=== PATIENT | male | born 1945 | race Caucasian/White ===

== ENCOUNTER 2020-03-04 10:11 | Outpatient (REF) | payer MEDICARE, SELFPAY | END 2020-03-04 10:12 | disposition home or self-care (01) | LOC: HO.BBR 10:11 | PROVIDERS: PCP Internal Medicine; Visit Provider Internal Medicine Gastroenterology | DX: Z13.89 Encounter for screening for other disorder (principal) ==

== ENCOUNTER 2020-03-04 10:55 | Outpatient (REF) | payer SELFPAY ==
[2020-03-04 11:55] LABS: Cholesterol 161 mg/dL
== END 2020-03-04 10:56 | disposition home or self-care (01) ==
LOC: HO.LNC 10:55
PROVIDERS: Visit Provider Pathology Anatomic Pathology & Clinical Pathology
DX: Z13.89 Encounter for screening for other disorder (principal)
CPT/HCPCS: 82465

== ENCOUNTER 2020-07-09 09:49 | Outpatient (REF) | payer MEDICARE, SELFPAY | END 2020-07-09 09:50 | disposition home or self-care (01) | LOC: HO.BBR 09:49 | PROVIDERS: Visit Provider Internal Medicine Gastroenterology | DX: Z13.89 Encounter for screening for other disorder (principal) ==

== ENCOUNTER 2020-11-06 08:55 | Outpatient (REF) | payer MEDICARE, SELFPAY | END 2020-11-06 08:56 | disposition home or self-care (01) | LOC: HO.BBR 08:55 | PROVIDERS: Visit Provider Internal Medicine Gastroenterology | DX: Z13.89 Encounter for screening for other disorder (principal) ==

== ENCOUNTER 2021-02-27 08:55 | Outpatient (REF) | payer MEDICARE, SELFPAY | END 2021-02-27 08:56 | disposition home or self-care (01) | LOC: HO.BBR 08:55 | PROVIDERS: Visit Provider Internal Medicine Gastroenterology | DX: Z13.89 Encounter for screening for other disorder (principal) ==

== ENCOUNTER 2021-07-08 08:16 | Outpatient (REF) | payer MEDICARE, SELFPAY | END 2021-07-08 08:17 | disposition home or self-care (01) | LOC: HO.BBR 08:16 | PROVIDERS: Visit Provider Internal Medicine Gastroenterology | DX: Z13.89 Encounter for screening for other disorder (principal) ==

== ENCOUNTER 2021-11-13 08:52 | Outpatient (REF) | payer MEDICARE, SELFPAY | END 2021-11-13 08:53 | disposition home or self-care (01) | LOC: HO.BBR 08:52 | PROVIDERS: Visit Provider Internal Medicine Gastroenterology | DX: Z13.89 Encounter for screening for other disorder (principal) ==

== ENCOUNTER 2022-03-05 14:35 | Outpatient (REF) | payer MEDICARE, SELFPAY | END 2022-03-05 14:36 | disposition home or self-care (01) | LOC: HO.BBR 14:35 | PROVIDERS: Visit Provider Internal Medicine Gastroenterology | DX: Z13.89 Encounter for screening for other disorder (principal) ==

== ENCOUNTER 2022-07-07 08:35 | Outpatient (REF) | payer MEDICARE, SELFPAY | END 2022-07-07 08:36 | disposition home or self-care (01) | LOC: HO.BBR 08:35 | PROVIDERS: Visit Provider Internal Medicine Gastroenterology | DX: Z13.89 Encounter for screening for other disorder (principal) ==

== ENCOUNTER 2022-11-13 09:01 | Outpatient (REF) | payer MEDICARE, SELFPAY | END 2022-11-13 09:02 | disposition home or self-care (01) | LOC: HO.BBR 09:01 | PROVIDERS: PCP Pediatrics; Visit Provider Internal Medicine Gastroenterology | DX: Z13.89 Encounter for screening for other disorder (principal) ==

== ENCOUNTER 2023-03-11 10:11 | Outpatient (REF) | payer MEDICARE, SELFPAY | END 2023-03-11 10:12 | disposition home or self-care (01) | LOC: HO.BBR 10:11 | PROVIDERS: PCP Pediatrics; Visit Provider Internal Medicine Gastroenterology | DX: Z13.89 Encounter for screening for other disorder (principal) ==

== ENCOUNTER 2023-07-12 09:46 | Outpatient (REF) | payer MEDICARE, SELFPAY | END 2023-07-12 09:47 | disposition home or self-care (01) | LOC: HO.BBR 09:46 | PROVIDERS: PCP Pediatrics; Visit Provider Internal Medicine Gastroenterology | DX: Z13.89 Encounter for screening for other disorder (principal) ==

== ENCOUNTER 2023-11-16 10:00 | Outpatient (REF) | payer MEDICARE, SELFPAY | END 2023-11-16 10:01 | disposition home or self-care (01) | LOC: HO.BBR 10:00 | PROVIDERS: PCP Pediatrics; Visit Provider Internal Medicine Gastroenterology | DX: Z13.89 Encounter for screening for other disorder (principal) ==

== ENCOUNTER 2024-03-06 08:14 | Outpatient (REF) | payer MEDICARE, SELFPAY | END 2024-03-06 08:15 | disposition home or self-care (01) | LOC: HO.BBR 08:14 | PROVIDERS: PCP Pediatrics; Visit Provider Internal Medicine Gastroenterology | DX: Z13.89 Encounter for screening for other disorder (principal) ==

== ENCOUNTER 2024-07-25 09:48 | Outpatient (REF) | payer MEDICARE, SELFPAY ==
--- OUTSIDE RECORDS SUMMARY | 2024-07-25 10:49 | XMS_ITS | Clinical Summary ---
Author Organization [facility] ity Address [address] [place] [address] Care Team Providers Care Party Coordinator Name Role Phone Phong Workman MD Primary Care Provider Medications apixaban (ELIQUIS) 5 mg tablet Take 1 tablet (5 mg total) by mouth 2 (two) times a day. 180 each 3 01/17/2024 Active lisinopriL (PRINIVIL,ZESTR IL) 20 mg tablet Take 1 tablet (20 mg total) by mouth 1 (one) time each day. Active chlorthalidone (HYGROTON) 25 mg tablet Take 1 tablet (25 mg total) by mouth 1 (one) time each day. 02/23/2024 Active metoprolol succinate (TOPROL-XL) 25 mg 24 hr tablet Take 1 tablet (25 mg total) by mouth 1 (one) time each day. Active dilTIAZem CD (CARDIZEM CD) 240 mg 24 hr capsule Take 1 capsule (240 mg total) by mouth 1 (one) time each day. 90 capsule 1 05/30/2024 Active Surgical History Surgery Date Site/Laterality Comments COLONOSCOPY PROCEDURE: HISTORICAL COLONOSCOPY HERNIA REPAIR PROCEDURE: HISTORICAL HERNIA REPAIR/ING HIP ARTHROPLASTY Right PROCEDURE: HISTORICAL HIP REPLACEMENT HAND SURGERY Left PROCEDURE: HISTORICAL HAND SURGERY; COMMENT: fingers repaired after nearly severed OTHER SURGICAL HISTORY PROCEDURE: MD BIOPSY LIVER NEEDLE PERCUTANEOUS Medical History Medical History Date Comments A-fib (CMS/HCC V24, CMS/HCC V28) DX:A-fib (HCC) Atrial fibrillation (CMS/HCC V24, CMS/HCC V28) DX:Atrial fibrillation (HCC) History of cardioversion DX:Hist ory of cardioversion; COMMENT: for atrial fibrillation; ineffective Hand injury DX:Hand injury; COMMENT: left fingers cut as as teen while working at [employer]; repaired Hemochromatosis DX:Hemochromatos is Family History Medical History Relation Name Comments Arthritis Mother Other: hemachromatosis Other Arthritis Sister RA Relation Name Status Comments Mother Alive Other Sister Alive Social History Tobacco Use Types Packs/Day Years Used Date Smoking Tobacco: Never Smokeless Tobacco: Never Alcohol Use Standard Drinks/Week Comments Yes 0 (1 standard drink = 0.6 oz pur e alcohol) Sex and Gender Information Value Date Recorded Sex Assigned at Not on file Legal Sex Male 9:01 AM EST Gender Identity Not on file Sexual Orientation Not on file Obstetrics History Last Filed Vital Signs Vital Sign Reading Time Taken Comments Blood Pressure 150/68 11/19/2023 9:57 AM EDT Sitting L Arm Pulse 70 11/19/2023 9:57 AM EDT Temperature - - Respiratory Rate - - Oxygen Saturation - - Inhaled Oxygen Concentration - - Weight 99 kg (218 lb 4.8 oz) 11/19/2023 9:57 AM EDT Height 180.3 cm (5' 11 ) 11/11/2023 10: 00 AM EDT Body Mass Index 30.45 11/11/2023 10:00 AM EDT Plan of Treatment Upcoming Encounters Date Type Department Care Team (Late st Contact Info) Description 09/15/2024 9:10 AM EDT Office Visit [facility] [address] [place] [address] Natali Sorensen NP [address] [place] [address] [address] [place] [address] Health Maintenance Due Date Last Done Comments Pneumococcal Vaccine: 50+ Years (1 of 1 - PCV) 12/08/1997 Zoster Vaccines (1 of 2) 12/08/1997 Cholesterol Screening (Lipid Panel) 02/13/2022 Depression Screening 02/13/2022 Falls Risk Assessment 02/13/2022 Hepatitis C Screening 02/13/2022 Medicare Annual Wellness Visit 02/13/2022 Social Influencers of Health Screening 02/13/2022 RSV Immunization Adult Patients (1 - 1-dose 75+ series) 12/08/2022 COVID-19 Vaccine ( - 2023-2 5 season) 2023 Hypertension/CHF/CAD Annual BMP Blood Test 12/19/2023 07/09/2016, 07/08/2016, 07/07/2016 Influenza Vaccine (Season Ended) 2024 DTaP,Tdap,and Td Vaccines (2 - Td or Tdap) 07/07/2026 07/07/2016 HIB Vaccines Aged Out No longer eligi ble based on patient's age to complete this topic HPV Vaccines Aged Out No longer eligi ble based on patient's age to complete this topic Hepatitis A Vaccines Aged Out No long er eligible based on patient's age to complete this topic Hepatitis B Vaccines Aged Out No long er eligible based on patient's age to complete this topic IPV Vaccines Aged Out No longer eligi ble based on patient's age to complete this topic MMR Vaccines Aged Out No longer eligi ble based on patient's age to complete this topic Meningococcal ACWY Vaccine Aged Out N o longer eligible based on patient's age to complete this topic Meningococcal B Vaccine Aged Out No l onger eligible based on patient's age to complete this topic RSV Immunization Patients Under 20 months Aged Out No longer eligible b ased on patient's age to complete this topic Varicella Vaccines Aged Out No longer eligible based on patient's age to complete this topic [place] [address] [address] [place] [address] MEDICARE Care Teams Party Coordinator Relationship Specialty Start Date End Date Phong Workman MD [address] [facility] [address] [place], [place] PCP - General Internal Medicine 02/04/12
--- OUTSIDE RECORDS SUMMARY | 2024-07-25 10:49 | XMS_ITS | Clinical Summary ---
Author Organization [facility] Address [address] [place] [address] Care Team Providers Care Maintenance Groundskeeper Name Role Phone Unknown Primary Care Provider [phone] Allergies Active Allergy Reactions Criticality Noted Date Comments Iron Other (See Comments) 10/31/2020 Medications diltiazem (CARDIZEM CD) 240 MG 24 hr capsule Take by mouth daily. 3 Active simvastatin (ZOCOR) 20 MG tablet Take 20 mg by mouth. Active furosemide (LASIX) 20 MG tablet Take 20 mg by mouth. Active metoPROLOL SUCCINATE (TOPROL-XL) 50 MG 24 hr tablet Take 75 mg by mouth daily. 3 Active Eliquis 5 MG tablet Take 5 mg by mouth 2 (two) times a day. 3 Active CALCIUM-VITAMIN D PO Take by mouth. Active lisinopril (PRINIVIL,ZeSTRIL) 10 MG tablet Take 10 mg by mouth. 2 Active fluticasone (FloNASE) 50 mcg/spray nasal sprayIndications:Vi ral URI 1 spray into each nostril daily. 1 each 3 Active trimethoprim-polymy alesha b (POLYTRIM) ophthalmic solutionIndications :Acute conjunctivitis of right eye, unspecified acute conjunctivitis type 1-2 drops in each eye every 4 hours for 7-10 days 10 mL 3 Active amoxicillin (AMOXIL) 500 MG capsuleIndications: Acute bacterial sinusitis Take 1 capsule (500 mg total) by mouth 3 (three) times a day. 30 capsule 3 Active Active Problems No known active problems Social History Tobacco Use Types Packs/Day Years Used Date Smoking Tobacco: Never Assessed Sex and Gender Information Value Date Recorded Sex Assigned at Male 09/10/2022 8:19 AM EDT Legal Sex Male 8:16 AM EDT Gender Identity Not on file Sexual Orientation Not on file Last Filed Vital Signs Vital Sign Reading Time Taken Comments Blood Pressure 163/86 09/16/2022 8:26 AM EDT Pulse 74 09/16/2022 8:26 AM EDT Temperature 36.5 ??C (97.7 ??F) 09/16/2022 8:26 AM ED T Respiratory Rate - - Oxygen Saturation 98% 09/16/2022 8:26 AM EDT Inhaled Oxygen Concentration - - Weight 95.7 kg (211 lb) 09/16/2022 8:26 AM EDT Height - - Body Mass Index - - Plan of Treatment Health Maintenance Due Date Last Done Comments Hepatitis C Virus Screening 1945 DTaP/Tdap/Td Vaccines (1 - Tdap) 12/08/1966 Pneumococcal Vaccines 50+ (1 of 1 - PCV) 12/08/1997 Zoster (Shingles) Vaccine (1 of 2) 12/08/1997 RSV Vaccine 60 years and old er and Patients (1 - 1-dose 75+ series) 12/08/2022 COVID-19 Vaccine ( - 2023-2 5 season) 2023 Influenza Vaccine 10/06/2024 Hepatitis B Vaccines Aged Out No long er eligible based on patient's age to complete this topic Insurance MEDICARE PART A & B [facility] Care Teams Maintenance Groundskeeper Relationship Specialty Start Date End Date Unknown Unknow Provider Address PCP - General 09/10/22
--- OUTSIDE RECORDS SUMMARY | 2024-07-25 10:49 | XMS_ITS ---
Author Name [facility] Organization Unknown History of Medication Use Medication Directions Dispensed Refills Start Date End Date Stat amoxicillin (AMOXIL) 500 MG capsule Take 1 capsule (500 mg total) by mouth 3 (three) times a day. 09/16/2022 09/27/2022 active Problems Problem Status Onset Date Problem Type Date of Resoluti on Source Acute bacterial sinusitis active EncounterDiagnosisAct CCT Encounters Encounter Type Encounter Reason Primary Diagnosis Location Date Ambulatory Acute sinusitis, unspecified [facility] 09/16/2022 Ambulatory Unspecified acut e conjunctivitis, right eye [facility] 09/10/2022 Care Team Organization Name Specialty Phone Email Start Date End Da te [facility] 09/10/2022 09/10/2022 [facility] 09/10/2022 [facility] 08/08/2022 [facility] Phong Workman MD Primary Care
--- OUTSIDE RECORDS SUMMARY | 2024-07-25 10:49 | XMS_ITS | Clinical Summary ---
Author Organization [facility] Address [address] [place] [address] Care Team Providers Care Strip Roller Name Role Phone Phong Workman MD Primary Care Provider [phone] Allergies No known active allergies Medications Medication Sig Dispensed Refills Start Date End Date Status ELIQUIS 5 MG TABS tablet TK 1 T PO BID 11 06/11/2016 Active DILT-XR 240 MG 24 hr capsule TK ONE C PO QD 11 06/08/2016 Active furosemide (LASIX) 20 MG tablet TK 1 T PO QD 2 06/11/2016 Active metoprolol succinate (TOPROL-XL) 24 hr tablet 50 mg TK 1 AND 1/2 TS PO D 11 06/06/2016 Active simvastatin (ZOCOR) tablet 20 mg TK 1 T PO QD 0 04/03/2016 Active Lactobacillus (ACIDOPHILUS) 100 MG CAPS Take 1 capsule by mouth 3 (three) times a day with meals. 30 each 0 07/10/2016 Active Active Problems Problem Noted Date Diagnosed Date Cellulitis of left upper extremity 07/07/2016 Immunizations Name Administration Dates Next Due Tdap 07/07/2016 Social History Tobacco Use Types Packs/Day Years Used Date Smoking Tobacco: Never Smokeless Tobacco: Never Alcohol Use Standard Drinks/Week Comments Yes 0 (1 standard drink = 0.6 oz pur e alcohol) social Sex and Gender Information Value Date Recorded Sex Assigned at Not on file Gender Identity Not on file Sexual Orientation Not on file Last Filed Vital Signs Vital Sign Reading Time Taken Comments Blood Pressure 122/75 07/10/2016 7:35 AM EDT Pulse 76 07/10/2016 7:35 AM EDT Temperature 36.1 ??C (97 ??F) 07/10/2016 7:35 AM EDT Respiratory Rate 17 07/10/2016 7:35 AM EDT Oxygen Saturation 97% 07/10/2016 7:35 AM EDT Inhaled Oxygen Concentration - - Weight 97.1 kg (214 lb) 07/07/2016 11:54 PM EDT Height 180.3 cm (5' 11 ) 07/07/2016 7:00 PM EDT Body Mass Index 29.85 07/07/2016 7:00 PM EDT Plan of Treatment Health Maintenance Due Date Last Done Comments Hepatitis C Screening 1945 COVID-19 Vaccine (#1) 06/08/1948 Depression Screening 1959 Preventative Health Evaluation 12/08/1965 Shingrix-Zoster Vaccine (1 of 2) 12/08/1997 Fall Risk Assessment 12/08/2012 Pneumococcal Vaccine (1 of 1 - PCV) 12/08/2012 RSV Adult > 60+ Yrs or Pregn ant (1 - 1-dose 75+ series) 12/08/2022 Influenza Vaccine (#1) 2023 DTap / Tdap / Td (2 - Td or Tdap) 07/07/2026 017 Hepatitis B Vaccines Aged Out No long er eligible based on patient's age to complete this topic RSV Ped < 20 months Aged Out No longe r eligible based on patient's age to complete this topic Advance Directives For more information, please contact: [phone] Latest Code Status on File Code Status Date Activated Date Inactivated Comments Full Code 07/07/2016 6:51 PM 07/10/2016 5:53 PM This co de status was ascertained in the following way: discussion with patient. Care Teams Strip Roller Relationship Specialty Start Date End Date Phong Workman MD PCP - General Internal Medicine 07/07/16
== END 2024-07-25 09:49 | disposition home or self-care (01) ==
LOC: HO.BBR 09:48
PROVIDERS: PCP Pediatrics; Visit Provider Internal Medicine Gastroenterology
DX: Z13.89 Encounter for screening for other disorder (principal)

== ENCOUNTER 2024-11-23 08:44 | Outpatient (REF) | payer MEDICARE, SELFPAY ==
--- OUTSIDE RECORDS SUMMARY | 2024-11-23 10:00 | XMS_ITS | Clinical Summary ---
Author Organization [facility] Address [address] [place] [address] Care Team Providers Care Network Control Supervisor Name Role Phone Phong Workman MD Primary Care Provider [phone] Allergies No known active allergies Medications Medication [...] 76 07/10/2016 7:35 AM EDT Temperature 36.1 C (97 F) 07/10/2016 7:35 AM EDT Respiratory Rate 17 [...] 1-dose 75+ series) 12/08/2022 Influenza Vaccine (#1) 2024 DTap / Tdap / Td (2 - Td or Tdap) 07/07/2026 017 Hepatitis B Vaccines Aged Out No long er eligible based on patient's age to complete this topic RSV Ped < 20 months Aged Out No longe r eligible based on patient's age to complete this topic Advance Directives For more information, please contact: [phone] Latest Code Status on File Code Status Date Activated Date Inactivated Comments Full Code 07/07/2016 6:51 PM 07/10/2016 5:53 PM This co de status was ascertained in the following way: discussion with patient. Care Teams Network Control Supervisor Relationship Specialty Start Date End Date Phong Workman MD PCP - General Internal Medicine 07/07/16
--- OUTSIDE RECORDS SUMMARY | 2024-11-23 10:00 | XMS_ITS ---
Author Name [facility] Organization Unknown History of Medication Use Medication Directions Dispensed Refills Start Date End Date Stat us amoxicillin (AMOXIL) 500 MG capsule Take 1 capsule (500 mg total) by mouth 3 (three) times a day. 09/16/2022 09/27/2022 active Allergies Allergen Reaction Severity Comment Documented Date Source Statu s IRON OTHER (SEE COMMENTS) 10/31/2020 CCT active Problems Problem Status Onset Date Problem Type Date of Resoluti on Source Acute bacterial sinusitis [facility] Encounter Type Encounter Reason Primary Diagnosis Location Date Ambulatory Acute sinusitis, unspecified [facility] 09/16/2022 Ambulatory Unspecified acut e conjunctivitis, right eye [facility] 09/10/2022 Care Team Organization Name Specialty Phone Email Start Date End Da te [facility] 09/10/2022 09/10/2022 [facility] 09/10/2022 [facility] Primary Care
--- OUTSIDE RECORDS SUMMARY | 2024-11-23 10:00 | XMS_ITS | Clinical Summary ---
Author Organization [facility] Address [address] [place] [address] Phone Care Team Providers Care Consumer Analyst Name Role Phone Phong Workman MD Primary Care Provider Allergies No known active allergies Medications apixaban (ELIQUIS) 5 mg tablet Take 1 tablet (5 mg total) by mouth 2 (two) times a day. 180 each 3 4 Active chlorthalidone (HYGROTON) 25 mg tablet Take 1 tablet (25 mg total) by mouth 1 (one) time each day. 4 Active dilTIAZem CD (CARDIZEM CD) 240 mg 24 hr capsule Take 1 capsule (240 mg total) by mouth 1 (one) time each day. 90 capsule 1 5 Active simvastatin (ZOCOR) 20 mg tablet Take 1 tablet (20 mg total) by mouth at bedtime. Active lisinopril (PRINIVIL,ZESTR IL) 40 mg tablet Take 1 tablet (40 mg total) by mouth 1 (one) time each day. Active calcium carbonate/vitam in D3 (CALCIUM + D ORAL) Take 500 mg by mouth 1 (one) time each day. Active metoprolol succinate (TOPROL-XL) 25 mg 24 hr tablet Take 1 tablet (25 mg total) by mouth 1 (one) time each day. 90 tablet 1 5 Active metoprolol succinate (TOPROL-XL) 25 mg 24 hr tablet Take 1 tablet (25 mg total) by mouth 1 (one) time each day. 11/11/19 25 Discontinu ed(Reorder ) Active Problems No known active problems Encounters Date Type Department Care Team Description 11/10/2024 Telephone [facility] [address] [place] [address] Natali Sorensen NP 09/18/2024 2:40 PM EDT Office Visit [facility] [address] [place] [address] Natali Sorensen NP Permanent atrial fibrillation (CMS/HCC V24, CMS/HCC V28) (Primary Dx); Primary hypertension from Last 3 Months Surgical History Surgery Date Site/Laterality Comments COLONOSCOPY PROCEDURE: HISTORICAL COLONOSCOPY HERNIA REPAIR PROCEDURE: HISTORICAL HERNIA REPAIR/ING HIP ARTHROPLASTY Right PROCEDURE: HISTORICAL HIP REPLACEMENT HAND SURGERY Left PROCEDURE: HISTORICAL HAND SURGERY; COMMENT: fingers repaired after nearly severed OTHER SURGICAL HISTORY PROCEDURE: [place] BIOPSY LIVER NEEDLE PERCUTANEOUS Medical History Medical History Date Comments A-fib (CMS/HCC V24, CMS/HCC V28) DX:A-fib (HCC) Atrial fibrillation (CMS/HCC V24, CMS/HCC V28) DX:Atrial fibrillation (HCC) History of cardioversion DX:Hist ory of cardioversion; COMMENT: for atrial fibrillation; ineffective Hand injury DX:Hand injury; COMMENT: left fingers cut as as teen while working at [employer]; repaired Hemochromatosis DX:Hemochromatos is Family History Medical History Relation Name Comments Arthritis Mother Other: hemachromatosis Other Arthritis Sister RA Relation Name Status Comments Mother Alive Other Sister Alive Social History Tobacco Use Types Packs/Day Years Used Date Smoking Tobacco: Never Smokeless Tobacco: Never Alcohol Use Standard Drinks/Week Comments Yes 0 (1 standard drink = 0.6 oz pur e alcohol) occasional Sex and Gender Information Value Date Recorded Sex Assigned at Not on file Legal Sex Male 9:01 AM EST Gender Identity Not on file Sexual Orientation Not on file Obstetrics History Last Filed Vital Signs Vital Sign Reading Time Taken Comments Blood Pressure 126/72 09/18/2024 2:33 PM EDT Pulse 70 09/18/2024 2:33 PM EDT Temperature - - Respiratory Rate - - Oxygen Saturation 97% 09/18/2024 2:33 PM EDT Inhaled Oxygen Concentration - - Weight 95 kg (209 lb 6.4 oz) 09/18/2024 2:33 PM EDT Height 180.3 cm (5' 11 ) 09/18/2024 2:33 PM EDT Body Mass Index 29.21 09/18/2024 2:33 PM EDT Plan of Treatment Health Maintenance Due Date Last Done Comments Hepatitis A Vaccines (1 of 2 - Risk 2-dose series) 12/08/1966 Zoster Vaccines (1 of 2) 12/08/1997 Hepatitis B Vaccines (1 of 3 - Risk 3-dose series) 2007 Pneumococcal Vaccine: 50+ Years (2 of 2 - PCV) 05/07/2015 05/06/2014 Cholesterol Screening (Lipid Panel) 02/13/2022 Falls Risk Assessment 02/13/2022 Hepatitis C Screening 02/13/2022 Medicare Annual Wellness Visit 02/13/2022 Social Influencers of Health Screening 02/13/2022 RSV Immunization Adult Patients (1 - 1-dose 75+ series) 12/08/2022 Hypertension/CHF/CAD Annual BMP Blood Test 12/19/2023 07/09/2016, 07/08/2016, 07/07/2016 Depression Screening 03/08/2024 COVID-19 Vaccine (1 - 2023-2 5 season) 2024 Influenza Vaccine (#1) 2024 12/21/2016 DTaP,Tdap,and Td Vaccines (4 - Td or Tdap) 07/07/2026 07/07/2016, 02/06/2008, 04/08/1997 Colorectal Cancer Screening: Colonoscopy Discontinued 09/23/2020 HIB Vaccines Aged Out No longer eligi [...] 20 months Aged Out No longer eligible based on patient's age to complete this topic Varicella Vaccines Aged Out No longer eligible based on patient's age to complete this topic Procedures Procedure Name Priority Date/Time Associated Diagnosis Comments ECG 12-LEAD Routine 09/18/2024 4:31 PM EDT Permanent atrial fibrillation (CMS/HCC V24, CMS/HCC V28) Primary hypertension EXTERNAL COLONOSCOPY REPORT Routine 09/23/2020 8:49 AM EDT from Last 3 Months or Most Recently Relevant to Health Maintenance Results * ECG 12 lead (09/18/2024 4:31 PM EDT) Ventricular Rate ECG 51 BPM GEMUSE Atrial Rate 69 BPM GEMUSE QRS Duration 86 ms GEMUSE Q-T Interval 444 ms GEMUSE QTc 409 ms GEMUSE R [place] -4 degrees GEMUSE T [place] 12 degrees GEMUSE ECG Interpretation Atrial fibrillation with slow ventricular response Abnormal ECG No previous ECGs available Confirmed by TOM JOHNSON ([id number]) on 10/02/2024 10:18:47 AM GEMUSE 09/18/2024 2:42 PM EDT 10/02/2024 10:18 AM EDT Natali Sorensen HEAD INSPECTOR AND CENTER MARKER ECG ORDERABLES Edited Resul t - Final GEMUSE * External Colonoscopy Report (09/23/2020 8:49 AM EDT) Anatomical Region Laterality Modality Endoscopy Historical Provider GI~PROCEDURE ORDERABLES F inal Result from Last 3 Months or Most Recently Relevant to Health Maintenance Insurance MEDICARE Care Teams Consumer Analyst Relationship Specialty Start Date End Date Phong Workman MD [address] [facility] [address] [place], [place] PCP - General Internal Medicine 02/04/12
== END 2024-11-23 08:45 | disposition home or self-care (01) ==
LOC: HO.BBR 08:44
PROVIDERS: PCP Pediatrics; Visit Provider Internal Medicine Gastroenterology
DX: Z13.89 Encounter for screening for other disorder (principal)